=== PATIENT | male | born 1995 | race African-American/Black ===

== ENCOUNTER 2022-02-28 22:49 | Emergency (ER) | payer MEDICAID ==
[~2022-02-28] VITALS: Ht 165.1 cm; Wt 59.0 kg
[2022-03-01] VITALS: BP 136/76
[2022-03-01] MEDS ORDERED: ACETAMINOPHEN 325MG TABLET PO ONE (00:15)
[2022-03-01 00:26] LABS: BASOPHILS % 0.3 % (0.0-2.0); EOSINOPHILS % 0.5 % (0.0-5.0); HEMATOCRIT. 30.1 % (42.0-52.0); HEMOGLOBIN. 10.1 g/dL (14.0-18.0); LYMPHOCYTES % 18.1 % (20.0-50.0); MEAN CORPUSCULAR HEMOGLOBIN 27.6 pg (28.0-32.0); MEAN PLATELET VOLUME 7.5 fl (7.4-10.4); MONOCYTES % 7.3 % (2.0-8.0); NEUTROPHILS % 73.8 % (40.0-76.0); PLATELET 514 x1000/uL (130-400); RED BLOOD CELL COUNT 3.67 mill/uL (4.7-6.1); RED CELL DISTRIBUTION WIDTH 14.1 % (11.6-14.6)
[2022-03-01 00:29] LABS: CHLORIDE 104 mEq/L (98-107)
[2022-03-01 00:37] LABS: BETA HYDROXYBUTYRATE 0.1 mMol/L (0.0-0.3)
[2022-03-01] MEDS ORDERED: SODIUM CHLORIDE 0.9% 1,000 ML IV ONE (00:45)
[2022-03-01 01:29] LABS: PROTHROMBIN TIME 10.3 sec (9.6-11.0)
== END 2022-03-01 00:50 | disposition left against medical advice (07) ==
LOC: ER 22:49
DX: K85.90 Acute pancreatitis without necrosis or infection, unspecified (principal); E11.65 Type 2 diabetes mellitus with hyperglycemia; D64.9 Anemia, unspecified; Z79.4 Long term (current) use of insulin
CPT/HCPCS: 36415; 74176; 80053; 82010; 84478; 85025; 99284